=== PATIENT | female | born 1975 | race Caucasian/White ===

== ENCOUNTER → 2016-10-18 08:06 | Outpatient (CLI) | payer OTHER | END | disposition home or self-care (01) | LOC: D.MRI 08:06 | DX: M54.2 Cervicalgia (principal) ==

== ENCOUNTER → 2017-03-21 07:38 | Outpatient (CLI) | payer OTHER | END | disposition home or self-care (01) | LOC: D.CN 01-24 08:00 | DX: M79.601 Pain in right arm (principal); R53.1 Weakness ==

== ENCOUNTER → 2017-08-06 09:31 | Outpatient (CLI) | payer OTHER ==
[2017-08-06 11:11] LABS: ALBUMIN 3.7 g/dL (3.4-5.0); BILIRUBIN - DIRECT 0.09 mg/dL (0.00-0.30); BILIRUBIN - INDIRECT 0.39 mg/dL (0.00-1.00); BILIRUBIN - TOTAL 0.48 mg/dL (0.2-1.3)
== END | disposition home or self-care (01) ==
LOC: D.US 09:30
PROVIDERS: Internal Medicine Gastroenterology
DX: R10.11 Right upper quadrant pain (principal); R19.7 Diarrhea, unspecified

== ENCOUNTER → 2017-08-13 08:50 | Outpatient (CLI) | payer OTHER | END | disposition home or self-care (01) | LOC: D.CT 08:50 | PROVIDERS: Internal Medicine Gastroenterology | DX: K76.9 Liver disease, unspecified (principal); R93.8 Abnormal findings on diagnostic imaging of other specified body structures ==

== ENCOUNTER → 2017-09-04 07:24 | Outpatient (CLI) | payer OTHER ==
[2017-09-04 09:32] LABS: HCG SERUM NEGATIVE (NEGATIVE)
== END | disposition home or self-care (01) ==
LOC: D.NM 07:24
PROVIDERS: Internal Medicine Gastroenterology
DX: R10.11 Right upper quadrant pain (principal); R19.7 Diarrhea, unspecified